=== PATIENT | female | born 1985 | race Caucasian/White ===

== ENCOUNTER 2019-05-15 14:26 | Emergency (ER) | payer SELFPAY ==
[~2019-05-15] VITALS: Ht 172.7 cm; Wt 58.0 kg
[2019-05-15] MEDS: ONDANSETRON HCL 4MG/2ML INJ IV STA (20:58)
[2019-05-15] MEDS: SODIUM CHLORIDE 0.9% 1,000 ML IV ONE (20:59)
[2019-05-15] MEDS: LORAZEPAM 2MG/ML CPJ IM ONE (21:00)
[2019-05-15] MEDS: OLANZAPINE 10 MG/VIAL IM ONE (21:07)
[2019-05-15 21:34] LABS: HEMOGLOBIN. 13.8 g/dL (12.0-16.0); MEAN CORPUSCULAR HEMOGLOBIN 30.5 pg (28.0-32.0); MEAN CORPUSCULAR VOLUME 90.3 fL (81.0-99.0); MEAN PLATELET VOLUME 11.1 fl (7.4-10.4); PLATELET 127 x1000/uL (130-400); RED BLOOD CELL COUNT 4.54 mill/uL (4.2-5.4); RED CELL DISTRIBUTION WIDTH 14.4 % (11.6-14.6)
[2019-05-15 21:44] LABS: CHLORIDE 118 mEq/L (98-107)
[2019-05-15 21:50] LABS: ETHANOL BLOOD < 10 mg/dL
[2019-05-15 21:54] LABS: CREATINE KINASE 331 IU/L (26-192); CREATINE KINASE MB FRACTION 5.8 ng/mL (0.5-3.6)
[2019-05-15 22:12] LABS: PLATELET ESTIMATE NORMAL
[2019-05-15 22:26] LABS: *BARBITURATES SCREEN URINE NEGATIVE (NEGATIVE); *BENZODIAZEPINES SCREEN URINE NEGATIVE (NEGATIVE); *COCAINE SCREEN URINE NEGATIVE (NEGATIVE); METHADONE URINE SCREEN NEGATIVE (NEGATIVE); OPIATES URINE SCREEN NEGATIVE (NEGATIVE); PHENCYCLIDINE URINE SCREEN NEGATIVE (NEGATIVE)
[2019-05-15 22:31] LABS: *AMPHETAMINES SCREEN URINE PRESUMTIVE POSITIVE (NEGATIVE); CANNABINOID URINE SCREEN PRESUMTIVE POSITIVE (NEGATIVE)
[2019-05-16] MEDS: LORAZEPAM 2MG/ML CPJ IV ONE (00:24)
[2019-05-16 01:36] LABS: T4 FREE 1.17 ng/dL (0.76-1.46)
[2019-05-16 01:39] LABS: HCG SCREEN NEGATIVE
[2019-05-17 15:21] VITALS: BP 116/68
== END 2019-05-17 15:29 | disposition home or self-care (01) ==
LOC: ER 14:44
DX: G93.40 Encephalopathy, unspecified (principal); F29 Unspecified psychosis not due to a substance or known physiological condition; E05.90 Thyrotoxicosis, unspecified without thyrotoxic crisis or storm; E86.0 Dehydration; M62.82 Rhabdomyolysis; T43.621A Poisoning by amphetamines, accidental (unintentional), initial encounter; Y92.89 Other specified places as the place of occurrence of the external cause; F20.9 Schizophrenia, unspecified
CPT/HCPCS: 36415; 70450; 80053; 80305; 80320; 81025; 82550; 82553; 84439; 84443; 84481; 84484; 84703; 85025; 93005; 96361; 96372; 96374; 96375; 99285; J2060; J2405; J3490; J7030; G0480